=== PATIENT | male | born 1975 | race Caucasian/White ===

== ENCOUNTER 2020-06-23 20:00 | Outpatient (CLI) | payer OTHER, SELFPAY | END 2020-06-23 20:01 | disposition home or self-care (01) | LOC: SLEEP 06-24 10:12 | PROVIDERS: Family Provider Family Medicine; Visit Provider Nurse Practitioner Family | DX: G47.33 Obstructive sleep apnea (adult) (pediatric) (principal) | CPT/HCPCS: 95811 ==

== ENCOUNTER 2023-06-28 14:02 | Emergency (ER) | payer OTHER, SELFPAY ==
--- NOTE | 2023-06-28 14:05 | XRR_ITS ---
PROCEDURE INFORMATION: Exam: XR Left Hand Exam date and time: 06/28/2023 2:15 PM Age: 47 years old Clinical indication: Injury or trauma; Other: Not specified; Blunt trauma (contusions or hematomas); Hand; Left TECHNIQUE: Imaging protocol: Radiologic exam of the left hand. Views: 3 or more views. COMPARISON: No relevant prior studies available. FINDINGS: Bones/joints: See Soft tissues finding. Soft tissues: A metallic density with nail like appearance of 3.5-4 cm in length is seen dorsal to the proximal and middle phalanx of the 2nd or index finger on the lateral view. This appears medial (thumb side) to the proximal and middle phalanx of the 2nd or index finger on the AP view. A definite fracture or fracture line is not seen. Osseous structures and joint spaces appear unremarkable otherwise. Soft tissue swelling of the 2nd or index finger. XR/XR hand LT min 3V* [id number] IMPRESSION: Metallic foreign body density with nail like appearance of between 3.5 and 4 cm in length is seen dorsal and medial to the proximal middle phalanx of the 2nd or index finger, without identification of a definite fracture or fracture line. Follow-up can be performed post foreign body removal otherwise.
[2023-06-28 14:11] VITALS: BP 143/87; PULSE 81; RESP 18; TEMP 36.7; O2SAT 99; BMI 40.3
--- NOTE | 2023-06-28 14:20 | ED_ITS ---
HPI - Skin/Abscess/Foreign Bdy General: Chief complaint: Skin/Abscess/Foreign Body Stated complaint: nail in left pointer finger Time Seen by Provider: 06/28/23 14:17 History of Present Illness: 47-year-old male patient comes in today with a nail in his left index finger. Patient was holding a board for his friend when the double fired hitting him in the finger. Patient was struck in the dorsal aspect of the finger and it was a through and through injury. X-ray of the finger from the urgent care clinic noted a small irving and they were concerned that there may cause further injury and they referred him to the ER for further evaluation. Patient has a history of diabetes. Review of Systems General: Reports: 10 or more systems reviewed and unremarkable except in HPI and below Musc: Reports: extremity pain and other (Foreign body left hand index finger) Physical Exam Const: COMMON NORMALS: alert HENMT: COMMON NORMALS: normocephalic HEAD & SCALP: normocephalic Neck/C-Spine: COMMON NORMALS: full ROM Resp: COMMON NORMALS: normal respiratory effort Cardio: COMMON NORMALS: regular rate and regular rhythm RATE: regular rate RHYTHM: regular rhythm Extremity: LEFT UPPER EXTREMITY: Yes hand & digits (Nail noted in the dorsal aspect of the left index finger. Range of motion ) Left hand and digits: Yes inspection, Yes palpation and Yes ROM Neuro: SENSORIUM/ORIENTATION: Yes alert Skin: TRAUMA: puncture (Left index finger, nail intact) Procedures Foreign Body Removal Site: hand Description of foreign body: other Sedation/Analgesia: other (2% lidocaine with epinephrine) Technique: removal with forceps Confirmed by:: direct visualization and radiograph Complications: none Post-procedure exam: awake, alert Neurovascular: distal motor function normal Course Vital Signs: Vital signs: Vital Signs Temperature 98.1 F 06/28/23 14:11 Pulse Rate 81 06/28/23 14:11 Respiratory Rate 18 06/28/23 14:11 Blood Pressure 143/87 06/28/23 14:11 Pulse Oximetry 99 06/28/23 14:11 Oxygen Delivery Me thod Room Air 06/28/23 14:11 MDM - Skin/Abscess/Foreign Bdy Medicial Decision Making Patient comes in for a foreign body to the left index finger. It is a full-size nail into the dorsal finger. Patient had normal tendon function. Cap refill is intact. Patient does have a history of diabetes. Differential diagnosis fracture, foreign body, neurovascular injury. X-ray noted no bone involvement. Nail was removed and the wound was irrigated with 120 mL of saline. Patient was given 2 g of Ancef. Patient be continued on oral antibiotics. Patient be recommended to follow-up with orthopedics office in 1 week for reevaluation. Lab Data Radiology Impressions Hand X-Ray 06/28/23 14:05 IMPRESSION: Metallic foreign body density with nail like appearance of between 3.5 and 4 cm in length is seen dorsal and medial to the proximal middle phalanx of the 2nd or index finger, without identification of a definite fracture or fracture line. Follow-up can be performed post foreign body removal otherwise. XR interpretation done by ED provider, pending radiology final review Discharge Plan Discharge Patient Disposition: Home Clinical Impression: Foreign body finger Condition: Stable Prescriptions: New hydrocodone-acetaminophen 5-325 mg tablet 1 tab PO Q6H PRN (Reason: pain (scale score 7-10)) 3 Days Qty: 7 0RF cefdinir 300 mg capsule 300 mg PO BID 7 Days Qty: 14 0RF Discharge Orders: Discharge ED (Routine); Ordered 06/28/23 Ordered By: Raymond Durán Referrals: Carolina Aj FNP [Primary Care Provider] - Patient Instructions: Wound Care (General) Activity Restrictions/Additional Instructions: Home and rest. Keep keep wound clean and dry as much as possible. Change dressing daily. Follow-up with primary care as needed. Case management will contact you regarding follow-up appointment with orthopedics in 1 week for recheck of wound. Return to ER for worsening symptoms such as increasing redness and swelling in the hand and streaking up the arm, or fever greater than 100.4. 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
--- NOTE | 2023-06-28 14:45 | XRR_ITS ---
PROCEDURE INFORMATION: Exam: XR Left Finger(s) Exam date and time: 06/28/2023 3:51 PM Age: 47 years old Clinical indication: Injury or trauma; Other: Nail in hand; Puncture; Left; Index finger; Additional info: Post removal nail TECHNIQUE: Imaging protocol: Radiologic exam of the left fingers. Views: Minimum 2 views. COMPARISON: CR XR hand LT min 3V* [id number] 06/28/2023 2:15 PM FINDINGS: Bones/joints: See Soft tissues finding. Soft tissues: Interval removal of metallic nail foreign body of the 2nd or index finger. No fracture or dislocation. No acute osseous abnormality. Metallic ring overlies the proximal phalanx of the 4th or ring finger. Mild soft tissue swelling of the 2nd or index finger. XR/XR finger LT min 2V [id number] IMPRESSION: Interval removal of metallic nail foreign body density of the 2nd or index finger. No fracture or acute osseous abnormality.
[2023-06-28] MEDS: ceFAZolin 2,000 MG in sodium chloride 0.9% (plus) 50 ML 100 MG IV (14:49)
[2023-06-28] MEDS: tetanus-dipt-pertussis 0.5 mL SDV IM (15:04)
--- NOTE | 2023-06-29 07:46 | DCPLANNER ---
Message was sent to ortho clinic on 06/29/23 at 0746. Clinic to contact patient,
== END 2023-06-28 15:21 | disposition home or self-care (01) ==
PROVIDERS: Emergency Provider Nurse Practitioner Family; PCP Nurse Practitioner Family
DX: S61.241A Puncture wound with foreign body of left index finger without damage to nail, initial encounter (principal); W45.0XXA Nail entering through skin, initial encounter; Z23 Encounter for immunization
CPT/HCPCS: 73130; 73140; 90471; 90715; 96365; 99284; J0690